=== PATIENT | female | born 1995 | race Caucasian/White ===

== ENCOUNTER 2024-07-20 16:41 | Emergency (ER) | payer OTHER ==
[~2024-07-20] VITALS: Ht 165.1 cm; Wt 60.0 kg
[2024-07-20 16:50] VITALS: O2SAT 97
[2024-07-20] MEDS ORDERED: BO1 TP (18:39)
[2024-07-20] MEDS ORDERED: AMOX1TAB16 MT (18:39)
[2024-07-20] MEDS: TETANUS, DIPHTHERIA, PERTUSSIS VAC/PF 0.5ML (>10YR OLD) IM ONE (19:40)
[2024-07-20 19:43] VITALS: BP 116/67; PULSE 68; RESP 20; TEMP 36.61404; O2SAT 100
== END 2024-07-20 19:44 | disposition home or self-care (01) ==
LOC: ER 16:41
DX: S61.256A Open bite of right little finger without damage to nail, initial encounter (principal); Z79.899 Other long term (current) drug therapy; X58.XXXA Exposure to other specified factors, initial encounter; Y93.89 Activity, other specified; Y92.89 Other specified places as the place of occurrence of the external cause; Y99.8 Other external cause status
CPT/HCPCS: 73130; 90715; 90471; 99283; Z7610